=== PATIENT | female | born 1960 | race Caucasian/White ===

== ENCOUNTER 2024-12-07 11:08 | Day surgery (SDC) | payer OTHER ==
[2024-12-05 14:30] VITALS: BMI 19.5
[2024-12-07 13:08] VITALS: RESP 18
[2024-12-07 13:10] VITALS: TEMP 97.8
[2024-12-07 13:20] VITALS: BP 100/60; PULSE 82
== END 2024-12-07 13:20 | disposition home or self-care (01) ==
LOC: FASU-ENDO 11:08
PROVIDERS: ATTEND Internal Medicine Gastroenterology
PROC: 0DJD8ZZ Inspection of Lower Intestinal Tract, Via Natural or Artificial Opening Endoscopic (ICD-10-PCS; principal; 2024-12-07 12:16)
DX: Z12.11 Encounter for screening for malignant neoplasm of colon (principal); K64.0 First degree hemorrhoids; K57.30 Diverticulosis of large intestine without perforation or abscess without bleeding; K62.89 Other specified diseases of anus and rectum